=== PATIENT | male | born 1990 | race Caucasian/White ===

== ENCOUNTER 2020-02-26 11:16 | Emergency (ER) | payer OTHER | END 2020-02-26 14:13 | disposition other institution (70) | LOC: ED 11:16 | DX: Z02.89 Encounter for other administrative examinations (principal) ==

== ENCOUNTER 2020-02-26 11:16 | Emergency (ER) | payer MEDICAID ==
[~2020-02-26] VITALS: Ht 185.4 cm; Wt 86.2 kg
[2020-02-26 11:22] VITALS: Ht 185.4 cm; Wt 86.2 kg
[2020-02-26 14:11] VITALS: BP 123/86
== END 2020-02-26 14:13 | disposition other institution (70) ==
LOC: ED 11:16
DX: J45.901 Unspecified asthma with (acute) exacerbation (principal)
CPT/HCPCS: Q0092